=== PATIENT | male | born 1935 | race Caucasian/White ===

== ENCOUNTER 2017-04-02 11:26 | Emergency (ER) | payer MEDICARE, OTHER ==
[2013-01-01 07:51] VITALS: BP 132/79
[2017-04-02] MEDS ORDERED: MORPHINE SULFATE 4 MG INJ IV ONE (12:03)
[2017-04-02] MEDS ORDERED: Zofran 4 MG/2 ML VIAL IV ONE (12:03)
--- NOTE | 2017-04-02 12:03 | ERPHSYRPT ---
- History of Present Illness Time Seen by Provider: 04/02/17 11:53 Source: patient Exam Limitations: no limitations Patient Subjective Stated Complaint: pt here for right sided neck pain that is chronic but worse for last couple days. no injury to neck Triage Nursing Assessment: pt alert, resp easy , skin w/d pinl, no edema.moves all ext well, nontender to palpate Physician History: The patient is an 81-year-old male with his complaining of neck pain worse on the right near his right ear since Friday, or 3 days ago. His right ear is now beginning to hurt. It hurts him to move his neck from side to side but it does not hurt him to touch his chin to his chest. He denies nausea or vomiting. He denies headache. He denies numbness or tingling. He would see his local doctor [place]. His past medical history is significant for CABG. Timing/Duration: day(s) (3), gradual onset, worse Severity: severe Modifying Factors: Improves With: nothing Associated Symptoms: denies symptoms Allergies/Adverse Reactions: Sulfa (Sulfonamide Antibiotics) [Sulfa(Sulfonamide Antibiotics)] Allergy ( Intermediate, Verified 04/02/17 11:43) nose bleeds Home Medications: Lorazepam 1 mg [Ativan 1 MG] 1 mg PO HS 07/04/12 [History] Aspirin [Aspir-Low] 81 mg DAILY 04/02/17 [History] Levothyroxine Sodium 50 Mcg [Synthroid 50 Mcg] 50 mcg DAILY 04/02/17 [ History] Hx Tetanus, Diphtheria Vaccination/Date Given: Yes (4 OR 5 YRS AGO) Hx Influenza Vaccination/Date Given: No Hx Pneumococcal Vaccination/Date Given: No Immunizations Up to Date: Yes - Review of Systems Constitutional: No Fever, No Chills Eyes: No Symptoms Ears, Nose, & Throat: Ear Pain Respiratory: No Cough, No Dyspnea Cardiac: No Chest Pain, No Edema, No Syncope Abdominal/Gastrointestinal: No Abdominal Pain, No Nausea, No Vomiting, No Diarrhea Genitourinary Symptoms: No Dysuria Musculoskeletal: Neck Pain Skin: No Rash Neurological: No Dizziness, No Focal Weakness, No Sensory Changes Psychological: No Symptoms Endocrine: No Symptoms Hematologic/Lymphatic: No Symptoms Immunological/Allergic: No Symptoms All Other Systems: Reviewed and Negative - Past Medical History Pertinent Past Medical History: Yes Neurological History: No Pertinent History ENT History: No Pertinent History Cardiac History: Coronary Artery Disease Respiratory History: No Pertinent History Endocrine Medical History: No Pertinent History Musculoskeletal History: Arthritis GI Medical History: Polyps History: Other Psycho-Social History: No Pertinent History Male Reproductive Disorders: No Pertinent History Other Medical History: 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 5 VESSEL CABG - Social History Smoking Status: Former smoker Exposure to second hand smoke: No Drug Use: none Patient Lives Alone: No - Nursing Vital Signs Nursing Vital Signs: Initial Vital Signs Temperature 97.5 F 04/02/17 11:35 Pulse Rate 79 04/02/17 11:35 Respiratory Rate 18 04/02/17 11:35 Blood Pressure 222/100 04/02/17 11:35 O2 Sat by Pulse Oximetry 96 04/02/17 11:35 Pain Scale Pain Intensity 0 - Physical Exam General Appearance: moderate distress Eye Exam: PERRL/EOMI, eyes nml inspection Ears, Nose, Throat Exam: normal ENT inspection, TMs normal, pharynx normal, moist mucous membranes Neck Exam: limited range of motion (minimal movement of head from right to left. ), other (mild tenderness to palpation of right lateral neck to right base of skull.), No full range of motion, No Kernig's Respiratory Exam: normal breath sounds, lungs clear, No respiratory distress Cardiovascular Exam: regular rate/rhythm, normal heart sounds, normal peripheral pulses Gastrointestinal/Abdomen Exam: soft, normal bowel sounds, No tenderness, No mass Rectal Exam: not done Back Exam: normal inspection, normal range of motion, No CVA tenderness, No vertebral tenderness Extremity Exam: normal inspection, normal range of motion, pelvis stable Neurologic Exam: alert, oriented x 3, cooperative, normal mood/affect, nml cerebellar function, nml station & gait, sensation nml, No motor deficits Skin Exam: normal color, warm, dry, No rash Lymphatic Exam: No adenopathy SpO2 Interpretation: normal SpO2: 97 Oxygen Delivery: Room Air - CT Exams Head CT Interpretation: Tele-radiologist Report, No/Intracranial Hemorrhag, Other ( non acute brain with right mid colindres radiata small remote infarct per Dr Ayers) Soft Tissue Neck CT Interpretation: Tele-radiologist Report, Other (Tiny air bubbles in soft tissue neck on right side. tiny intraluminal air bubble in left jugular vein presumed iatrogenic per Dr Ayers.) Chest CT Interpretation: Discussed w/radiologist, Tele-radiologist Report, Other (2 air bubbles in right supraclavicular region and tiny air bubble in left jugular vein. no pneumomediastinum per Dr Ayers.) Ordered Tests: Active Orders 24 hr Category Date Time Status IV Insertion STAT Care 04/02/17 12:03 Active CHEST WITHOUT CONTRAST [CT] Stat Exams 04/02/17 13:36 Completed HEAD WITHOUT CONTRAST [CT] Stat Exams 04/02/17 12:06 Completed NECK WO CONTRAST [CT] Stat Exams 04/02/17 12:13 Completed CBC W DIFF Stat Lab 04/02/17 12:28 Completed CMP Stat Lab 04/02/17 12:28 Completed Medication Summary Discontinued Medications Generic Name Dose Route Start Last Admin Trade Name Freq PRN Reason Stop Dose Admin Labetalol HCl 10 mg 04/02/17 12:45 04/02/17 12:56 Trandate 20 Mg/5 Ml Syringe IV 04/02/17 12:46 10 mg STAT ONE Administration Labetalol HCl Confirm 04/02/17 12:48 Trandate 100 Mg/20 Ml Mdv For Drip Administered 04/02/17 12:49 Dose 100 mg IV .STK-MED ONE Morphine Sulfate 4 mg 04/02/17 12:03 04/02/17 12:20 Morphine Sulfate 4 Mg Inj IV 04/02/17 12:04 4 mg STAT ONE Administration Morphine Sulfate Confirm 04/02/17 12:11 Morphine Sulfate 4 Mg Inj Administered 04/02/17 12:12 Dose 4 mg .ROUTE .STK-MED ONE Ondansetron HCl 4 mg 04/02/17 12:03 04/02/17 12:20 Zofran 4 Mg/2 Ml Vial IV 04/02/17 12:04 4 mg STAT ONE Administration Ondansetron HCl Confirm 04/02/17 12:11 Zofran 4 Mg/2 Ml Vial Administered 04/02/17 12:12 Dose 4 mg .ROUTE .STK-MED ONE Lab/Rad Data: Laboratory Result Diagrams 04/02/17 12:28 04/02/17 12:28 Laboratory Results 04/02/17 04/02/17 Range/Units 12:28 12:28 WBC 9.4 (4.0-10.5) K/mm3 RBC 4.09 L (4.1-5.6) M/mm3 Hgb 13.5 (12.5-18.0) gm/dl Hct 40.5 L (42-50) % MCV 99.0 (78-100) fl MCH 33.0 H (26-32) pg MCHC 33.3 (32-36) g/dl RDW 13.5 (11.5-14.0) % Plt Count 191 (150-450) K/mm3 MPV 10.2 H (6-9.5) fl Gran % 85.5 H (36.0-66.0) % Lymphocytes % 7.8 L (24.0-44.0) % Monocytes % 6.1 (0.0-12.0) % Eosinophils % 0.3 (0.00-5.0) % Basophils % 0.3 (0.0-0.4) % Basophils # 0.03 (0-0.4) Sodium 138 (136-145) mEq/L Potassium 4.5 (3.5-5.1) mEq/L Chloride 102 (98-107) mEq/L Carbon Dioxide 27.8 (21-32) mEq/L Anion Gap 12.6 (5-15) MEQ/L BUN 13 (9-20) mg/dL Creatinine 1.29 (0.55-1.30) mg/dl Estimated GFR 57 ML/MIN Glucose 169 H (70-110) MG/DL Calcium 9.1 (8.5-10.1) mg/dL Total Bilirubin 0.90 (0.2-1.0) mg/dL AST 15 (15-37) U/L ALT 12 (12-78) U/L Alkaline Phosphatase 78 (46-116) U/L Serum Total Protein 7.2 (6.4-8.2) gm/dL Albumin 3.8 (3.4-5.0) g/dL - Progress Progress: improved, pain not gone completely Discussed with Dr.: Smith - Departure Time of Disposition: 15:06 Departure Disposition: Transfer (transfer to Regional ER per Dr Winchester) Clinical Impression: Subcutaneous emphysema, non-traumatic, Neck pain Condition: Stable Critical Care Time: No Referrals: RICHARD ROBLES MD [Primary Care Provider] - Additional Instructions: You have subcutaneous emphysema of the right neck and neck pain. You were given morphine 2 mg and Valium 5 mg by IV in the ER. You're being transferred to regional per Dr. Winchester.
[2017-04-02] MEDS ORDERED: Zofran 4 MG/2 ML VIAL ONE (12:11)
[2017-04-02] MEDS ORDERED: MORPHINE SULFATE 4 MG INJ ONE (12:11)
[2017-04-02 12:29] LABS: BASOPHIL % 0.3 % (0.0-0.4); Eosinophil % 0.3 % (0.00-5.0); Granulocytes % 85.5 % (36.0-66.0); Lymphocytes % 7.8 % (24.0-44.0); Mean Platelet Volume 10.2 fl (6-9.5); Monocytes % 6.1 % (0.0-12.0); Platelet Count 191 K/mm3 (150-450); Red Blood Count 4.09 M/mm3 (4.1-5.6); Red Cell Distribution Width 13.5 % (11.5-14.0); White Blood Count 9.4 K/mm3 (4.0-10.5)
[2017-04-02] MEDS ORDERED: TRANDATE 20 MG/5 ML SYRINGE IV ONE (12:45)
[2017-04-02] MEDS ORDERED: TRANDATE 100 MG/20 ML MDV FOR DRIP IV ONE (12:48)
--- NOTE | 2017-04-02 12:59 | XRAY ---
Indication: Right-sided head pain. No known injury. Multiple contiguous axial images obtained through the head without contrast. Comparison: None Age-appropriate global atrophy and mild periventricular degenerative micro-ischemia bilaterally. Small 8 mm focus of remote infarct in the right mid colindres radiata. No acute intracranial hemorrhage, abnormal extra-axial fluid collection, or mass effect. Fourth ventricle is midline without hydrocephalus. Dolichoectatic basilar artery. Bony calvarium intact. Visualized paranasal sinuses and mastoid air cells clear. Impression: Nonacute senile brain with right mid colindres radiata small remote infarct. CTDI 70.62
--- NOTE | 2017-04-02 13:02 | XRAY ---
Indication: Right neck pain. No known injury. Multiple contiguous axial images obtained through the neck without contrast as ordered. Comparison: None There are tiny subcutaneous air bubbles in the soft tissues of the right neck, right submandibular, and right supraclavicular region. Tiny air bubble seen in the left jugular vein. No suspicious soft tissue mass or fluid collection. Parotid and submandibular glands unremarkable. Major arteries and veins are normal in course and caliber with minimal right carotid calcifications. Supra-and infraglottic airway widely patent. Normal epiglottis. Cervical spine is intact with mild/moderate C5-C7 degenerative disc disease. Additional atlantoaxial degenerative changes. Minimal biapical subpleural cystic changes. CT head reported separately. Impression: 1. Tiny air bubbles in the soft tissues of the right neck as detailed. No clear etiology on this noncontrast exam. 2. Left jugular vein tiny intraluminal air bubbles presumed iatrogenic. 3. Multilevel cervical spinal degenerative changes. CT DI 12.23
[2017-04-02 13:07] LABS: ALBUMIN 3.8 g/dL (3.4-5.0); ANION GAP 12.6 MEQ/L (5-15); BILIRUBIN,TOTAL 0.9 mg/dL (0.2-1.0); Carbon Dioxide 27.8 mEq/L (21-32); Potassium 4.5 mEq/L (3.5-5.1); Total Protein 7.2 gm/dL (6.4-8.2)
--- NOTE | 2017-04-02 14:25 | XRAY ---
Indication: Subcutaneous emphysema on CT neck. Multiple contiguous axial images obtained through the chest without contrast as ordered. Comparison: None Lungs are hyperinflated with minimal left upper lobe emphysema, minimal biapical subpleural cystic changes, and minimal scattered bilateral fibrosis/scarring. No suspicious pulmonary mass, infiltrate, effusion, or pneumothorax. Heart is not enlarged. Previous CABG surgery. Aorta is mildly calcified without aneurysmal dilatation. A few left hilar calcified nodes. No pathologic mediastinal lymphadenopathy. There are 2 air bubbles in the right supraclavicular region and tiny air bubble in the left jugular vein. No pneumomediastinum. Bony thorax demonstrates minimal degenerative changes throughout the spine and sternotomy wires. No acute fracture or suspicious bony lesions. Limited upper abdomen demonstrates moderately food distended stomach, colonic diverticulosis, and cholecystectomy clips. Impression: 1. Nonacute hyperinflated lungs with chronic findings as detailed. 2. 2 tiny air bubbles in the soft tissues of the right supraclavicular region with no clear etiology. CT DI 14.00
[2017-04-02] MEDS ORDERED: VALIUM 10 MG/2 ML SYRINGE IV ONE (15:09)
[2017-04-02] MEDS ORDERED: VALIUM 10 MG/2 ML SYRINGE ONE (15:17)
[2017-04-02 15:27] VITALS: BP 189/90; PULSE 80; O2SAT 98
== END 2017-04-02 15:46 | disposition short-term general hospital (02) ==
LOC: ED 11:26
DX: J98.2 Interstitial emphysema (principal); M54.2 Cervicalgia
CPT/HCPCS: 36000; 36415; 70450; 70490; 71250; 80053; 85025; 96374; 96375; 99285; J2270; J2405; J3360

== ENCOUNTER 2017-04-04 09:13 | Observation (INO) | payer MEDICARE, OTHER ==
[2017-04-04] MEDS ORDERED: Sodium Chloride 0.9% 1000 ML 1,000 ML IV STA (09:34)
[2017-04-04] MEDS ORDERED: APRESOLINE 20 MG/ML INJ IV ONE (09:37)
--- NOTE | 2017-04-04 09:42 | ERPHSYRPT ---
- History of Present Illness Time Seen by Provider: 04/04/17 09:26 Source: patient, family Exam Limitations: clinical condition Patient Subjective Stated Complaint: vomiting Physician History: pt last seen normal at 9pm, awoke today with confusion, slurring speech, no injury, no fever, +NV, no hx cva or htn or dm, seen recently at [facility] for neck pain Timing/Duration: today Severity: moderate Associated Symptoms: No syncope Allergies/Adverse Reactions: Sulfa (Sulfonamide Antibiotics) [Sulfa(Sulfonamide Antibiotics)] Allergy ( Intermediate, Verified 04/02/17 11:43) nose bleeds Home Medications: Lorazepam 1 mg [Ativan 1 MG] 1 mg PO HS 07/04/12 [History] Aspirin [Aspir-Low] 81 mg DAILY 04/02/17 [History] Levothyroxine Sodium 50 Mcg [Synthroid 50 Mcg] 50 mcg DAILY 04/02/17 [ History] Hx Tetanus, Diphtheria Vaccination/Date Given: Yes (4 OR 5 YRS AGO) Hx Influenza Vaccination/Date Given: No Hx Pneumococcal Vaccination/Date Given: No - Review of Systems Constitutional: Other (pt unable to provide ros) Respiratory: No Cyanosis Cardiac: No Syncope Abdominal/Gastrointestinal: Vomiting Neurological: Speech Changes - Past Medical History Pertinent Past Medical History: Yes Neurological History: No Pertinent History ENT History: No Pertinent History Cardiac History: Coronary Artery Disease Respiratory History: No Pertinent History Endocrine Medical History: No Pertinent History Musculoskeletal History: Arthritis GI Medical History: Polyps History: Other Psycho-Social History: No Pertinent History Male Reproductive Disorders: No Pertinent History Other Medical History: 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 5 VESSEL CABG - Social History Smoking Status: Former smoker Exposure to second hand smoke: No Drug Use: none Patient Lives Alone: No - Nursing Vital Signs Nursing Vital Signs: Initial Vital Signs Temperature 96.8 F 04/04/17 09:27 Pulse Rate 63 04/04/17 09:27 Blood Pressure 192/78 04/04/17 09:27 O2 Sat by Pulse Oximetry 97 04/04/17 09:27 Pain Scale Pain Intensity 0 - Physical Exam General Appearance: no apparent distress Eye Exam: PERRL/EOMI Ears, Nose, Throat Exam: normal ENT inspection Neck Exam: normal inspection Respiratory Exam: normal breath sounds Cardiovascular Exam: regular rate/rhythm Gastrointestinal/Abdomen Exam: soft, No rebound Back Exam: normal inspection Extremity Exam: No contusions Neurologic Exam: alert, cooperative, slurred speech Skin Exam: normal color, warm, dry - Course Nursing assessment & vital signs reviewed: Yes EKG Interpreted by Me: Other (nsr 62 no stemi similar to 02/2014) - Radiology Exams Chest X-ray Interpretation: Discussed w/ radiologist, Other (bibasilar atelec or infil ) - CT Exams Head CT Interpretation: Discussed w/radiologist, Other (no bleed, cta head w/o critical stenosis ) Ordered Tests: Active Orders 24 hr Category Date Time Status EKG-ER Only STAT Care 04/04/17 09:34 Active Straigth Cath [Cath for Specimen-Straight] STAT Care 04/04/17 11:27 Active Consult Neurology ROUTINE Cons 04/04/17 12:17 Active CHEST 1 VIEW (PORTABLE) Stat Exams 04/04/17 09:35 Completed CTA HEAD W AND/OR WO CONTRAST [CT] Stat Exams 04/04/17 13:02 Completed HEAD WITHOUT CONTRAST [CT] Stat Exams 04/04/17 09:36 Completed BLOOD CULTURE Stat Lab 04/04/17 13:15 Received CBC W DIFF Stat Lab 04/04/17 09:40 Completed CMP Stat Lab 04/04/17 09:40 Completed CULTURE,URINE Stat Lab 04/04/17 11:30 Received Lactic Acid Stat Lab 04/04/17 09:34 Completed TROPONIN Q3H Lab 04/04/17 09:40 Completed TROPONIN Q3H Lab 04/04/17 13:15 Completed TROPONIN Q3H Lab 04/04/17 15:45 Ordered TROPONIN Q3H Lab 04/04/17 18:45 Ordered TROPONIN Q3H Lab 04/04/17 21:45 Ordered UA W/ MICROSCOPIC Stat Lab 04/04/17 11:30 Completed Transfer Order Routine Transfer 04/04/17 Ordered Medication Summary Discontinued Medications Generic Name Dose Route Start Last Admin Trade Name Freq PRN Reason Stop Dose Admin Aspirin 324 mg 04/04/17 12:09 04/04/17 12:14 Baby Aspirin 81 Mg Chew PO 04/04/17 12:10 324 mg STAT ONE Administration Aspirin Confirm 04/04/17 12:13 Baby Aspirin 81 Mg Chew Administered 04/04/17 12:14 Dose 324 mg .ROUTE .STK-MED ONE Hydralazine HCl 20 mg 04/04/17 09:37 04/04/17 09:57 Apresoline 20 Mg/Ml Inj IV 04/04/17 09:38 20 mg STAT ONE Administration Hydralazine HCl Confirm 04/04/17 09:49 Apresoline 20 Mg/Ml Inj Administered 04/04/17 09:50 Dose 20 mg .ROUTE .STK-MED ONE Sodium Chloride 1,000 mls @ 999 mls/hr 04/04/17 09:34 04/04/17 09:57 Sodium Chloride 0.9% 1000 Ml IV 04/04/17 10:34 999 mls/hr .Q1H1M STA Administration Sodium Chloride Confirm 04/04/17 09:49 Sodium Chloride 0.9% 1000 Ml Administered 04/04/17 09:50 Dose 1,000 mls @ ud .ROUTE .STK-MED ONE Levofloxacin/Dextrose 500 mg in 100 mls @ 100 mls/hr 04/04/17 12:09 04/04/17 12:14 Levofloxacin 500mg/100ml D5w IV 04/04/17 13:08 100 mls/hr STAT STA Administration Levofloxacin/Dextrose Confirm 04/04/17 12:14 Levofloxacin 500mg/100ml D5w Administered 04/04/17 12:15 Dose 500 mg in 100 mls @ ud IV .STK-MED ONE Lab/Rad Data: Laboratory Result Diagrams 04/04/17 09:40 04/04/17 09:40 Laboratory Results 04/04/17 04/04/17 04/04/17 Range/Units 13:15 11:30 09:40 WBC (4.0-10.5) K/mm3 RBC (4.1-5.6) M/mm3 Hgb (12.5-18.0) gm/dl Hct (42-50) % MCV (78-100) fl MCH (26-32) pg MCHC (32-36) g/dl RDW (11.5-14.0) % Plt Count (150-450) K/mm3 MPV (6-9.5) fl Gran % (36.0-66.0) % Lymphocytes % (24.0-44.0) % Monocytes % (0.0-12.0) % Eosinophils % (0.00-5.0) % Basophils % (0.0-0.4) % Basophils # (0-0.4) Sodium (136-145) mEq/L Potassium (3.5-5.1) mEq/L Chloride (98-107) mEq/L Carbon Dioxide (21-32) mEq/L Anion Gap (5-15) MEQ/L BUN (9-20) mg/dL Creatinine (0.55-1.30) mg/dl Estimated GFR ML/MIN Glucose (70-110) MG/DL Lactic Acid (0.4-2.0) Calcium (8.5-10.1) mg/dL Total Bilirubin (0.2-1.0) mg/dL AST (15-37) U/L ALT (12-78) U/L Alkaline Phosphatase (46-116) U/L Troponin I < 0.017 < 0.017 (0.000-0.056) ng/ml Serum Total Protein (6.4-8.2) gm/dL Albumin (3.4-5.0) g/dL Ur Collection Type CLEAN CATCH Urine Color YELLOW (YELLOW) Urine Appearance CLEAR (CLEAR) Urine pH 7.0 (5-6) Ur Specific [place] 1.010 (1.005-1.025) Urine Protein TRACE (Negative) Urine Ketones MODERATE-40 (NEGATIVE) Urine Blood TRACE NON-HEM (0-5) Heron/ul Urine Nitrite NEGATIVE (NEGATIVE) Urine Bilirubin NEGATIVE (NEGATIVE) Urine Urobilinogen 1 (0-1) mg/dL Ur Leukocyte Esterase NEGATIVE (NEGATIVE) Urine Microscopic RBC 2-5 (0-2) /HPF Urine Microscopic WBC 0-2 (0-5) /HPF Ur Epithelial Cells RARE (FEW) /HPF Urine Bacteria FEW (NEGATIVE) /HPF Urine Mucus SLIGHT (NEGATIVE) /HPF Urine Culture Reflexed YES (NO) Urine Glucose NEGATIVE (NEGATIVE) mg/dL Specimen Received 04/04/17 1135 04/04/17 04/04/17 04/04/17 Range/Units 09:40 09:40 09:34 WBC 10.7 H (4.0-10.5) K/mm3 RBC 4.03 L (4.1-5.6) M/mm3 Hgb 13.2 (12.5-18.0) gm/dl Hct 39.3 L (42-50) % MCV 97.5 (78-100) fl MCH 32.7 H (26-32) pg MCHC 33.6 (32-36) g/dl RDW 12.8 (11.5-14.0) % Plt Count 197 (150-450) K/mm3 MPV 10.4 H (6-9.5) fl Gran % 85.6 H (36.0-66.0) % Lymphocytes % 7.7 L (24.0-44.0) % Monocytes % 6.3 (0.0-12.0) % Eosinophils % 0.2 (0.00-5.0) % Basophils % 0.2 (0.0-0.4) % Basophils # 0.02 (0-0.4) Sodium 127 L (136-145) mEq/L Potassium 4.0 (3.5-5.1) mEq/L Chloride 93 L (98-107) mEq/L Carbon Dioxide 27.0 (21-32) mEq/L Anion Gap 11.3 (5-15) MEQ/L BUN 16 (9-20) mg/dL Creatinine 1.16 (0.55-1.30) mg/dl Estimated GFR > 60 ML/MIN Glucose 109 (70-110) MG/DL Lactic Acid 1.3 (0.4-2.0) Calcium 9.0 (8.5-10.1) mg/dL Total Bilirubin 1.10 H (0.2-1.0) mg/dL AST 18 (15-37) U/L ALT 17 (12-78) U/L Alkaline Phosphatase 75 (46-116) U/L Troponin I (0.000-0.056) ng/ml Serum Total Protein 7.8 (6.4-8.2) gm/dL Albumin 3.8 (3.4-5.0) g/dL Ur Collection Type Urine Color (YELLOW) Urine Appearance (CLEAR) Urine pH (5-6) Ur Specific [place] (1.005-1.025) Urine Protein (Negative) Urine Ketones (NEGATIVE) Urine Blood (0-5) Heron/ul Urine Nitrite (NEGATIVE) Urine Bilirubin (NEGATIVE) Urine Urobilinogen (0-1) mg/dL Ur Leukocyte Esterase (NEGATIVE) Urine Microscopic RBC (0-2) /HPF Urine Microscopic WBC (0-5) /HPF Ur Epithelial Cells (FEW) /HPF Urine Bacteria (NEGATIVE) /HPF Urine Mucus (NEGATIVE) /HPF Urine Culture Reflexed (NO) Urine Glucose (NEGATIVE) mg/dL Specimen Received - Progress Progress: improved Discussed with : Kodi Will see patient in: hospital (observation) Counseled pt/family regarding: lab results, diagnosis, rad results - Departure Time of Disposition: 15:34 Departure Disposition: Observation Clinical Impression: Hypertensive encephalopathy CVA (cerebral vascular accident) Qualifiers: CVA mechanism: other Qualified Code(s): I63.8 - Other cerebral infarction Condition: Stable Critical Care Time: No Referrals: RICHARD ROBLES MD [Primary Care Provider] -
[2017-04-04 09:45] LABS: BASOPHIL % 0.2 % (0.0-0.4); Eosinophil % 0.2 % (0.00-5.0); Granulocytes % 85.6 % (36.0-66.0); Lymphocytes % 7.7 % (24.0-44.0); Mean Cell Volume 97.5 fl (78-100); Mean Platelet Volume 10.4 fl (6-9.5); Monocytes % 6.3 % (0.0-12.0); Platelet Count 197 K/mm3 (150-450); Red Blood Count 4.03 M/mm3 (4.1-5.6); Red Cell Distribution Width 12.8 % (11.5-14.0); White Blood Count 10.7 K/mm3 (4.0-10.5)
[2017-04-04 09:47] LABS: Mean Corpuscular Hemoglobin 32.7 pg (26-32)
[2017-04-04] MEDS ORDERED: APRESOLINE 20 MG/ML INJ ONE (09:49)
[2017-04-04] MEDS ORDERED: Sodium Chloride 0.9% 1000 ML 1,000 ML ONE (09:49)
--- NOTE | 2017-04-04 10:04 | XRAY ---
Indication: AMS. Comparison: CT chest 2 days ago. Portable chest again hyperinflated with new mild bibasilar infiltrates versus atelectasis. No consolidation/large effusion. Heart is not enlarged. Bony thorax intact again with sternotomy hardware.
[2017-04-04 10:06] LABS: ALBUMIN 3.8 g/dL (3.4-5.0); ALKALINE PHOSPHATASE 75 U/L (46-116); ANION GAP 11.3 MEQ/L (5-15); BLOOD UREA NITROGEN 16 mg/dL (9-20); CHLORIDE 93 mEq/L (98-107); Glucose 109 MG/DL (70-110); SGOT/AST 18 U/L (15-37); SGPT/ALT 17 U/L (12-78); SODIUM 127 mEq/L (136-145); Total Protein 7.8 gm/dL (6.4-8.2)
--- NOTE | 2017-04-04 10:34 | XRAY ---
Indication: Altered mental status. Multiple contiguous axial images obtained through the head without contrast. Comparison: April 02, 2017. Stable global atrophy, mild periventricular degenerative micro-ischemia bilaterally, and remote infarct in the right mid colindres radiata. Again no acute intracranial hemorrhage, abnormal extra-axial fluid collection, or mass effect. Fourth ventricle is midline without hydrocephalus. Bony calvarium intact. Visualized paranasal sinuses and mastoid air cells remain clear. Impression: No change compared to CT 2 days ago again demonstrating nonacute senile brain and small remote infarct in the right coronal radiata. CTDI 70.55
[2017-04-04 11:37] LABS: Bilirubin NEGATIVE (NEGATIVE); Blood TRACE NON-HEM Ery/ul (0-5); COMPLETE URINE MICROSCOPIC? YES; Collection Type CLEAN CATCH; Glucose NEGATIVE (NEGATIVE); Leukocyte Esterase NEGATIVE (NEGATIVE)
[2017-04-04 11:42] LABS: Bacteria FEW /HPF (NEGATIVE); Epithelial Cells RARE /HPF (FEW); Mucus SLIGHT /HPF (NEGATIVE); WBC 0-2 /HPF (0-5)
[2017-04-04 11:43] LABS: ADD URINE CULTURE? YES (NO)
[2017-04-04] MEDS ORDERED: Levofloxacin 500MG/100ML D5W 500 MG/100 ML BAG IV STA (12:09)
[2017-04-04] MEDS ORDERED: BABY ASPIRIN 81 MG CHEW PO ONE (12:09)
[2017-04-04] MEDS ORDERED: BABY ASPIRIN 81 MG CHEW ONE (12:13)
[2017-04-04] MEDS ORDERED: Levofloxacin 500MG/100ML D5W 500 MG/100 ML BAG IV ONE (12:14)
--- NOTE | 2017-04-04 14:43 | XRAY ---
Indication: Acute mental status change. Possible CVA. Conventional contrast enhanced CTA head was performed using 80 cc Isovue 370 contrast. Two-dimensional sagittal and coronal reformatted images obtained. Additional 3-dimensional reformatted images obtained using a separate workstation. Comparison: None Internal carotid arteries are bilaterally symmetric with mild parasellar internal carotid artery calcifications. No critical stenosis, obstruction, or vascular malformation. Normal carotid terminus with normal branching A1 and M1 segments bilaterally. More distal anterior and middle cerebral arteries are normal in CTA appearance. Anterior communicating and posterior communicating arteries not clearly seen presumed too small for resolution of exam. Posterior circulation demonstrates bilaterally patent distal vertebral arteries with the left slightly larger in size. Normal branching posterior inferior cerebellar arteries bilaterally. Mild dolichoectatic basilar artery with normal branching superior cerebellar and anterior-inferior cerebellar arteries bilaterally. Normal CTA appearance of the basilar tip and posterior cerebral arteries. Venous drainage unremarkable. Impression: Minimal bilateral parasellar internal carotid artery calcifications without critical stenosis/obstruction. Remaining CTA head is negative. CT DI 102.17
[2017-04-04] MEDS ORDERED: TYLENOL 325 MG PO PRN (15:46)
[2017-04-04] MEDS ORDERED: APRESOLINE 20 MG/ML INJ IV PRN (15:46)
[2017-04-04] MEDS: Sodium Chloride 0.9% 1000 ML 1,000 ML IV SCH (17:16)
[2017-04-04] MEDS ORDERED: Ativan 1 MG PO PRN (18:04)
[2017-04-05] MEDS: Sodium Chloride 0.9% 1000 ML 1,000 ML IV SCH (03:12)
[2017-04-05 06:17] LABS: BASOPHIL % 0.5 % (0.0-0.4); Eosinophil % 0.8 % (0.00-5.0); Granulocytes % 73.4 % (36.0-66.0); Lymphocytes % 15.3 % (24.0-44.0); Mean Cell Volume 96.6 fl (78-100); Mean Corpuscular Hemoglobin 33.2 pg (26-32); Mean Platelet Volume 10.6 fl (6-9.5); Platelet Count 175 K/mm3 (150-450); Red Blood Count 3.25 M/mm3 (4.1-5.6); Red Cell Distribution Width 12.6 % (11.5-14.0); White Blood Count 6.6 K/mm3 (4.0-10.5)
[2017-04-05 06:52] LABS: ALBUMIN 2.8 g/dL (3.4-5.0); ALKALINE PHOSPHATASE 52 U/L (46-116); ANION GAP 10.1 MEQ/L (5-15); BLOOD UREA NITROGEN 16 mg/dL (9-20); CHLORIDE 95 mEq/L (98-107); Glucose 93 MG/DL (70-110); Potassium 3.7 mEq/L (3.5-5.1); SGOT/AST 16 U/L (15-37); SGPT/ALT 9 U/L (12-78); SODIUM 126 mEq/L (136-145); Total Protein 5.9 gm/dL (6.4-8.2)
[2017-04-05 07:37] VITALS: O2SAT 95
[2017-04-05] MEDS ORDERED: MEDICATION INTERVENTION MC PRN (08:31)
--- NOTE | 2017-04-05 09:38 | PCM.DCORD ---
- Discharge Discharge Date: 04/05/17 Prescriptions: New Aspirin EC 81 mg [Ecotrin 81 mg] 162 mg PO DAILY #60 Continue Lorazepam 1 mg [Ativan 1 MG] 1 mg PO TID PRN PRN PRN Reason: Anxiety Levothyroxine Sodium 50 Mcg [Synthroid 50 Mcg] 50 mcg PO DAILY Cyanocobalamin/Cobamamide [Vitamin B-12 5,000 Mcg Tab Sl] 1 each DAILY Follow up with: RICHARD ROBLES MD [Primary Care Provider] - 1 Week
[2017-04-05] MEDS ORDERED: COBAMAMIDE SL SCH (10:00)
[2017-04-05] MEDS ORDERED: SYNTHROID 112 MCG PO SCH (10:00)
[2017-04-05] MEDS ORDERED: CYANOCOBALAMIN SL SCH (10:00)
[2017-04-05] MEDS ORDERED: SYNTHROID 50 MCG PO SCH (10:00)
[2017-04-05] MEDS ORDERED: ECOTRIN 81 MG PO SCH (10:00)
[2017-04-05] MEDS ORDERED: Levofloxacin 500MG/100ML D5W 500 MG/100 ML BAG IV SCH (10:00)
[2017-04-05 11:10] VITALS: BP 180/78; PULSE 56
--- NOTE | 2017-04-07 13:29 | SSS ---
DISCHARGE DIAGNOSES: 1) TRANSIENT ISCHEMIC ATTACK. 2) HYPERTENSION. HISTORY: The patient is an 81 year-old white male patient who has had a bad week. Recently he was seen approximately three days ago in the emergency room and was found to have some subcutaneous air in the neck area. He was seen at three different hospitals on that day ending up at [facility] for ENT evaluation. He reported that essentially it was nothing to worry about. The patient had done well on but again on Friday morning woke up with some slurred speech and some nausea. He had four episodes of vomiting on that day. The patient was evaluated by teleneurology due to potential for transient ischemic attack which they did confer that they felt this was most likely transient ischemic attack. The patient's blood pressure was somewhat elevated when he came in the emergency room. He was given hydralazine to bring the blood pressure down. Incidentally also noted that his blood pressure was even more significantly elevated than the visit on Friday running in the 220 range. The family reports that the patient does not ordinarily have hypertension. HOME MEDICATIONS: Lorazepam 1 mg at nighttime, aspirin 81 mg a day, Synthroid 550 mcg a day. ALLERGIES: SULFA. PHYSICAL EXAMINATION: Otherwise presently revealed a well nourished, well developed 81 year-old white male patient who is sitting up in a chair beside the bed with easy conversation with his family and himself. He appeared to be back to his normal state of health according to them and to the patient. The patient's vital signs on admission showed a temperature 96.8F, pulse 63, respiratory rate 16, blood pressure 192/78. O2 saturation 97% on room air. HEENT: Normocephalic, atraumatic. Pupils equal round reactive to light. Extraocular movements intact. Oropharynx is pink and moist. NECK: Supple without lymphadenopathy, thyromegaly or JVD. CHEST: Clear to auscultation with good air movement bilaterally. HEART: Regular rate and rhythm without murmurs, rubs or gallops heard. ABDOMEN: Soft, nontender, nondistended without hepatosplenomegaly or masses. EXTREMITIES: Without clubbing, cyanosis or edema. NEUROLOGIC: The patient is alert and oriented x3. No focal deficits are noted. LAB DATA AND TESTS: Revealed CT scan of the brain which was negative. CT angiogram of the neck revealing minimal bilateral parasellar internal carotid artery calcifications without critical stenosis or obstruction. He apparently had CT scan of the brain which was negative for evidence of stroke and no bleed. His blood work with a lactic acid of 1.3. CBC with hemoglobin 13.2, white blood cell count 10,700, PLT count 197,000. UA was normal, moderate ketones at 40. Troponin less than 0.017. Metabolic panel with sugar of 109, BUN 16, creatinine 1.16. Sodium was low at 127. Electrolytes were otherwise with potassium of 4.0. HOSPITAL COURSE: The patient was admitted to the medicine [facility] for observation. He cleared up nicely and in fact was essentially back to normal by the time he was admitted to the floor. The patient had done well overnight and was felt to be ready for discharge home at this time. The patient's blood pressure had remained slightly elevated at 150 to 170 range. The patient was instructed to follow up with his primary care physician this coming week, to increase his aspirin to two - 81 mg tablets a day and to return if he has any signs or symptoms of stroke immediately to the hospital.
== END 2017-04-05 10:45 | disposition home or self-care (01) ==
LOC: ED 09:13 → MED SURG 15:45
PROVIDERS: ADMIT Family Medicine; ATTEND Family Medicine
DX: G45.9 Transient cerebral ischemic attack, unspecified (principal); I10 Essential (primary) hypertension; Z79.899 Other long term (current) drug therapy
CPT/HCPCS: 93268 ×2; 96374; 96365; 99285; 36000; 82962; 96360; 93005; 87040; 81000; 36415 ×2; 85025 ×2; 80053 ×2; 84484; 87086; 71010; 70450; 70496; 83605; P9612; G0378; J0360; J1956; A9270-GY

== ENCOUNTER 2019-07-26 10:15 | Emergency (ER) | payer MEDICARE, OTHER ==
[2019-07-26 10:26] VITALS: BP 174/76; PULSE 62; O2SAT 96
--- NOTE | 2019-07-26 10:44 | ERPHSYRPT ---
- History of Present Illness Time Seen by Provider: 07/26/19 10:35 Source: patient, family Exam Limitations: no limitations Patient Subjective Stated Complaint: Pt states "My gums have hurt on and off for 48 years. It starts with a numb spot in my head and then it eats at my gums." Triage Nursing Assessment: PT presented aert and oriented X 3, skin pwd Pt ambulates with an upright steady gait, able to speak in clear full sentences. Pt in no apparent respiratory distress. Pt gums are unremarkable Physician History: This is an 83-year-old gentleman who states that he has left sided mouth and gum pain. Patient is edentulous and wears dentures. However, he is not wearing any at this time because of the pain on the left side. He states he is seen dentists and there has been no benefit in resolving his symptoms. He has seen his primary care physician and was given a Z-Flaco a year ago and initially there was some help but then symptoms of been worse over the last year. Patient has an associated pain in his forehead on the left side. The symptoms have been going on for 35 years since his age 48. He has never had a CAT scan of his head in the past. ENT Location: mouth Prearrival Treatment: no prearrival treatment Associated Symptoms: facial pain/swelling, headache Allergies/Adverse Reactions: Sulfa (Sulfonamide Antibiotics) [Sulfa(Sulfonamide Antibiotics)] Allergy ( Intermediate, Verified 04/02/17 11:43) nose bleeds Home Medications: Lorazepam 1 mg [Ativan 1 MG] 1 mg PO TID PRN PRN 07/04/12 [History] Hx Tetanus, Diphtheria Vaccination/Date Given: Yes Hx Influenza Vaccination/Date Given: No Hx Pneumococcal Vaccination/Date Given: No Immunizations Up to Date: Yes - Review of Systems Constitutional: No Symptoms Eyes: No Symptoms Ears, Nose, & Throat: Mouth Pain (Left side) Respiratory: No Symptoms Cardiac: No Symptoms Abdominal/Gastrointestinal: No Symptoms Genitourinary Symptoms: No Symptoms Musculoskeletal: No Symptoms Skin: No Symptoms Neurological: Headache Psychological: No Symptoms Endocrine: No Symptoms Hematologic/Lymphatic: No Symptoms Immunological/Allergic: No Symptoms All Other Systems: Reviewed and Negative - Past Medical History Pertinent Past Medical History: Yes Neurological History: No Pertinent History ENT History: No Pertinent History Cardiac History: Coronary Artery Disease Respiratory History: No Pertinent History Endocrine Medical History: Hypothyroidism Musculoskeletal History: Arthritis GI Medical History: Polyps History: Other Psycho-Social History: No Pertinent History Male Reproductive Disorders: No Pertinent History Other Medical History: 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 - Social History Smoking Status: Former smoker Exposure to second hand smoke: Yes Drug Use: none Patient Lives Alone: No - Nursing Vital Signs Nursing Vital Signs: Initial Vital Signs Temperature 97.6 F 07/26/19 10:21 Pulse Rate 62 07/26/19 10:21 Respiratory Rate 14 07/26/19 10:21 Blood Pressure 174/76 07/26/19 10:21 O2 Sat by Pulse Oximetry 96 07/26/19 10:21 Pain Scale Pain Intensity 7 - Physical Exam General Appearance: no apparent distress, alert, anxiety Eye Exam: bilateral eye: normal inspection, PERRL, EOMI Ear Exam: bilateral ear: auricle normal, canal normal, TM normal Nasal Exam: normal inspection Throat Exam: normal, pharynx normal, No dental tenderness (Left side mouth and gingival tenderness. No evidence of any ulcerations tumors or masses present.) , No foreign body, No tongue swollen, No uvula swelling Neck Exam: normal inspection, non-tender, supple, full range of motion, trachea midline, No lymphadenopathy (R), No lymphadenopathy (L) Cardiovascular/Respiratory Exam: chest non-tender Abdominal Exam: non-tender Neurologic Exam: alert, oriented x 3, cooperative, quality process lead II-XII nml as tested, normal mood/affect, nml cerebellar function, nml station & gait Skin Exam: normal color, warm, dry SpO2 Interpretation: normal SpO2: 96 O2 Delivery: Room Air Ordered Tests: Active Orders 24 hr Category Date Time Status FACIAL BONES WO CONTRAST [CT] Stat Exams 07/26/19 10:44 Completed HEAD WITHOUT CONTRAST [CT] Stat Exams 07/26/19 10:44 Completed - Progress Progress: unchanged Progress Note: 07/26/19 12:15 CAT scan of the head reveals no acute intracranial pathology. CAT scan of the face reveals no evidence of any acute fractures or disease processes. Counseled pt/family regarding: diagnosis, need for follow-up, rad results - Departure Departure Disposition: Home Clinical Impression: Headache, Mouth pain, Gingivitis Condition: Stable Critical Care Time: No Referrals: RICHARD ROBLES MD [Primary Care Provider] - Additional Instructions: Follow-up with a business asst for further evaluation of your gingival pain. Use of this mouthwash as directed.
--- NOTE | 2019-07-26 11:23 | XRAY ---
Indication: Headache and sinus pressure. Multiple contiguous axial images obtained through the facial bones. Sagittal and coronal reformatted images obtained. Comparison: None Patient is edentulous. Age-related osteopenia. No acute fracture, suspicious bony lesions, or radiopaque foreign body. Orbits including roof, nguyen, and floors intact. Minimal mucosal thickening floor of the left maxillary sinus. Remaining paranasal sinuses, ostiomeatal units, and nasal passages are clear. Incidental bilateral middle turbinate jhon bullosa. Minimal nasal septal deviation. Visualized noncontrasted soft tissues are unremarkable. Visualized cervical spine demonstrates mild/moderate multilevel degenerative changes. Impression: 1. CT facial bones negative for acute fracture. 2. Osteopenia, minimal left maxillary sinus disease, and multilevel cervical degenerative spondylosis.
--- NOTE | 2019-07-26 11:25 | XRAY ---
Indication: Headache and sinus pressure. Multiple contiguous axial images obtained through the head without contrast. Comparison: April 04, 2017. Again age-appropriate global atrophy. Progressive worsening moderate periventricular degenerative micro-ischemia bilaterally. No acute intracranial hemorrhage, abnormal extra-axial fluid collection, or mass effect. Fourth ventricle is midline without hydrocephalus. Bony calvarium intact. Visualized paranasal sinuses and mastoid air cells are clear. Impression: Continued aging brain including atrophy and degenerative micro-ischemia. No new or acute intracranial abnormalities.
== END 2019-07-26 12:36 | disposition home or self-care (01) ==
LOC: ED 10:15
DX: R51 Headache (principal); K13.79 Other lesions of oral mucosa; K05.10 Chronic gingivitis, plaque induced; Z79.899 Other long term (current) drug therapy; I25.10 Atherosclerotic heart disease of native coronary artery without angina pectoris; E03.9 Hypothyroidism, unspecified
CPT/HCPCS: 70450; 70486; 99283